=== PATIENT | male | born 1955 | race Caucasian/White ===

== ENCOUNTER → 2016-11-21 | Outpatient (CLI) | payer MEDICARE ==
[~2016-11-21] MED LIST: ASPIR 8181 MG PO; CARTIA XT240 MG PO; FENOFIBRATE134 MG PO; FISH OIL 1,0001 EACH PO; FLEXERIL 10 MG10 MG PO; GLUCOPHAGE1000 MG PO; LIPITOR TAB 1010 MG PO; LISINOPRIL40 MG PO; LORTAB PO; METOPROLOL TART50 MG PO; NORCO 5-325 TA1 EACH PO; OMEPRAZOLE20 MG PO; UNKNOWN BP MED
[2016-11-21 11:35] LABS: BUN/CREATININE RATIO 10 (0-10)
== END ==
LOC: OPSV2 09:55
PROVIDERS: Surgery
DX: Z01.810 Encounter for preprocedural cardiovascular examination (principal); Z01.812 Encounter for preprocedural laboratory examination
CPT/HCPCS: 36415; 80048; 93005

== ENCOUNTER → 2016-11-25 | Day surgery (SDC) | payer MEDICARE ==
[~2016-11-25] VITALS: Ht 177.8 cm; Wt 106.1 kg
== END | disposition home or self-care (01) ==
LOC: OR 11:59
PROVIDERS: Surgery
PROC: 0JB60ZZ Excision of Chest Subcutaneous Tissue and Fascia, Open Approach (ICD-10-PCS; 2016-11-25)
PROC: 0JQ60ZZ Repair Chest Subcutaneous Tissue and Fascia, Open Approach (ICD-10-PCS; principal; 2016-11-25 14:30)
DX: L72.0 Epidermal cyst (principal); I25.2 Old myocardial infarction; M19.90 Unspecified osteoarthritis, unspecified site; E11.9 Type 2 diabetes mellitus without complications; I10 Essential (primary) hypertension; K21.9 Gastro-esophageal reflux disease without esophagitis; N40.0 Benign prostatic hyperplasia without lower urinary tract symptoms; Z79.82 Long term (current) use of aspirin; Z79.899 Other long term (current) drug therapy; Z87.19 Personal history of other diseases of the digestive system
CPT/HCPCS: 82962; J0690; J2250; J3010; J7120

== ENCOUNTER → 2017-01-29 | Outpatient (CLI) | payer MEDICARE ==
[2017-01-29 13:05] LABS: BUN/CREATININE RATIO 11 (0-10)
== END ==
LOC: LAB 12:09
PROVIDERS: Emergency Medicine
DX: E11.69 Type 2 diabetes mellitus with other specified complication (principal); E78.2 Mixed hyperlipidemia; M13.852 Other specified arthritis, left hip; M13.871 Other specified arthritis, right ankle and foot; M15.8 Other polyosteoarthritis; M18.2 Bilateral post-traumatic osteoarthritis of first carpometacarpal joints; R23.8 Other skin changes; R35.0 Frequency of micturition
CPT/HCPCS: 36415; 80048

== ENCOUNTER → 2020-08-25 | Outpatient (CLI) | payer MEDICARE ==
[2020-08-25 10:10] LABS: BUN/CREATININE RATIO 14 (0-10)
[2020-08-28 13:10] LABS: CHOLESTEROL, TOTAL 162 mg/dL (100-199); HDL SIZE 8.7 nm (>=9.2); HDL-C 45 mg/dL (>39); HDL-P (TOTAL) 32.6 umol/L (>=30.5); LARGE HDL-P 2.8 umol/L (>=4.8); LARGE VLDL-P 3.3 nmol/L (<=2.7); LDL SIZE 21.3 nm (>20.5); LDL SIZE 21.3 nm (>=20.8); LDL-C 97 mg/dL (0-99); LDL-P 1276 nmol/L (<1000); LP-IR SCORE 63 (<=45); SMALL LDL-P 471 nmol/L (<=527); TRIGLYCERIDES 108 mg/dL (0-149); VLDL SIZE 51.8 nm (<=46.6)
== END ==
LOC: LAB 07:53
PROVIDERS: Emergency Medicine
DX: I12.9 Hypertensive chronic kidney disease with stage 1 through stage 4 chronic kidney disease, or unspecified chronic kidney disease (principal); E11.22 Type 2 diabetes mellitus with diabetic chronic kidney disease; N18.2 Chronic kidney disease, stage 2 (mild); E11.65 Type 2 diabetes mellitus with hyperglycemia; I25.10 Atherosclerotic heart disease of native coronary artery without angina pectoris; K21.9 Gastro-esophageal reflux disease without esophagitis; L02.422 Furuncle of left axilla; L29.8 Other pruritus; M13.852 Other specified arthritis, left hip; M13.871 Other specified arthritis, right ankle and foot; R23.8 Other skin changes; R35.0 Frequency of micturition; R93.3 Abnormal findings on diagnostic imaging of other parts of digestive tract; Z00.01 Encounter for general adult medical examination with abnormal findings
CPT/HCPCS: 36415; 80053; 83036; G0103

== ENCOUNTER → 2020-12-27 | Outpatient (CLI) | payer MEDICARE ==
[2020-12-27 11:27] LABS: HEMOGLOBIN 15.7 gm/dl (14.0-17.5); RED BLOOD COUNT 5.5 M/UL (4.20-5.50); WHITE BLOOD COUNT 11.7 K/UL (4.5-11.0)
[2020-12-27 11:41] LABS: BUN/CREATININE RATIO 11 (0-10)
== END ==
LOC: LAB 10:30
PROVIDERS: Emergency Medicine
DX: Z00.01 Encounter for general adult medical examination with abnormal findings (principal); I12.9 Hypertensive chronic kidney disease with stage 1 through stage 4 chronic kidney disease, or unspecified chronic kidney disease; E11.22 Type 2 diabetes mellitus with diabetic chronic kidney disease; N18.2 Chronic kidney disease, stage 2 (mild); E78.2 Mixed hyperlipidemia; E11.65 Type 2 diabetes mellitus with hyperglycemia; M15.8 Other polyosteoarthritis
CPT/HCPCS: 36415; 80053; 83036; 85025

== ENCOUNTER → 2021-03-30 | Outpatient (CLI) | payer MEDICARE ==
[2021-03-30 08:02] LABS: BUN/CREATININE RATIO 11 (0-10)
== END ==
LOC: LAB 07:16
PROVIDERS: Emergency Medicine
DX: I10 Essential (primary) hypertension (principal); E11.69 Type 2 diabetes mellitus with other specified complication; M15.8 Other polyosteoarthritis; E78.5 Hyperlipidemia, unspecified
CPT/HCPCS: 36415; 80048

== ENCOUNTER → 2021-07-11 | Outpatient (CLI) | payer MEDICARE ==
[2021-07-11 09:18] LABS: BUN/CREATININE RATIO 15 (0-10)
== END ==
LOC: LAB 07:23
PROVIDERS: Emergency Medicine
DX: I10 Essential (primary) hypertension (principal); E11.9 Type 2 diabetes mellitus without complications; N18.2 Chronic kidney disease, stage 2 (mild); E78.2 Mixed hyperlipidemia
CPT/HCPCS: 36415; 80053; 80061; 83036; 83704; 84443; 84550

== ENCOUNTER → 2022-01-24 | Outpatient (CLI) | payer MEDICARE ==
[2022-01-24 08:47] LABS: RED BLOOD COUNT 5.44 M/UL (4.20-5.50); WHITE BLOOD COUNT 9.9 K/UL (4.5-11.0)
[2022-01-24 09:39] LABS: BUN/CREATININE RATIO 13 (0-10)
[2022-01-25 08:15] LABS: CREATININE, URINE 120.1 mg/dL (Not Estab.)
[2022-01-25 14:11] LABS: CHOLESTEROL, TOTAL 151 mg/dL (100-199); HDL SIZE 8.6 nm (>=9.2); HDL-C 40 mg/dL (>39); HDL-P (TOTAL) 35.9 umol/L (>=30.5); LARGE HDL-P 2.9 umol/L (>=4.8); LARGE VLDL-P 3.9 nmol/L (<=2.7); LDL SIZE 20.8 nm (>20.5); LDL SIZE 20.8 nm (>=20.8); LDL-C 91 mg/dL (0-99); LDL-P 1232 nmol/L (<1000); LP-IR SCORE 81 (<=45); SMALL LDL-P 502 nmol/L (<=527); TRIGLYCERIDES 106 mg/dL (0-149); VLDL SIZE 54.9 nm (<=46.6)
== END ==
LOC: LAB 07:31
PROVIDERS: Emergency Medicine
DX: I12.9 Hypertensive chronic kidney disease with stage 1 through stage 4 chronic kidney disease, or unspecified chronic kidney disease (principal); E11.22 Type 2 diabetes mellitus with diabetic chronic kidney disease; N18.2 Chronic kidney disease, stage 2 (mild); E78.5 Hyperlipidemia, unspecified; E11.69 Type 2 diabetes mellitus with other specified complication; E11.65 Type 2 diabetes mellitus with hyperglycemia; R93.3 Abnormal findings on diagnostic imaging of other parts of digestive tract; K21.9 Gastro-esophageal reflux disease without esophagitis
CPT/HCPCS: 36415; 80053; 80061; 82043; 82570; 83036; 83704; 85025

== ENCOUNTER → 2022-05-02 | Outpatient (CLI) | payer MEDICARE ==
[2022-05-02 07:47] LABS: HEMOGLOBIN 15.6 gm/dl (14.0-17.5); RED BLOOD COUNT 5.45 M/UL (4.20-5.50); WHITE BLOOD COUNT 9.3 K/UL (4.5-11.0)
[2022-05-02 08:05] LABS: BUN/CREATININE RATIO 13 (0-10)
[2022-05-04 12:09] LABS: CHOLESTEROL, TOTAL 148 mg/dL (100-199); HDL SIZE 8.5 nm (>=9.2); HDL-C 46 mg/dL (>39); HDL-P (TOTAL) 36.5 umol/L (>=30.5); LARGE HDL-P 2.7 umol/L (>=4.8); LDL SIZE 20.8 nm (>20.5); LDL SIZE 20.8 nm (>=20.8); LDL-C 87 mg/dL (0-99); LDL-P 1291 nmol/L (<1000); LP-IR SCORE 67 (<=45); SMALL LDL-P 675 nmol/L (<=527); TRIGLYCERIDES 76 mg/dL (0-149); VLDL SIZE 46.9 nm (<=46.6)
== END ==
LOC: LAB 07:19
PROVIDERS: Emergency Medicine
DX: Z12.5 Encounter for screening for malignant neoplasm of prostate (principal); I25.10 Atherosclerotic heart disease of native coronary artery without angina pectoris; I10 Essential (primary) hypertension; K21.9 Gastro-esophageal reflux disease without esophagitis; E78.2 Mixed hyperlipidemia; E11.9 Type 2 diabetes mellitus without complications
CPT/HCPCS: 36415; 80053; 80061; 83036; 83704; 84443; 84550; 85025; G0103